=== PATIENT | male | born 1970 | race Caucasian/White ===

== ENCOUNTER 2021-06-22 10:18 | Emergency (ER) | payer OTHER, SELFPAY ==
[2021-06-22 10:45] VITALS: BP 127/89; PULSE 83; RESP 20; TEMP 36.6; O2SAT 98
--- NOTE | 2021-06-22 11:05 | ED.URI ---
HPI - URI/Sore Throat General Chief Complaint: Upper Respiratory Infection Stated Complaint: head and nasal congestion Time Seen by Provider: 06/22/21 11:05 Source: patient and RN notes reviewed Mode of arrival: ambulatory Limitations: no limitations History of Present Illness HPI Narrative: Arpit is a 51-year-old male patient who ambulated into the [facility] today. Patient states he has been sick since 06/17/2021. Patient states he has had congestion, fatigue, and diarrhea. Patient states his son has also been sick with cold-like symptoms. 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 Related Data Home Medications Medication Instructions Recorded Confirmed Dexilant 06/22/21 Allergies Allergy/AdvReac Type Severity Reaction Status Date / Time No Known Allergies Allergy Verified 06/22/21 10:59 Review of Systems Review of Systems: CONSTITUTIONAL: Denies body aches, fever, chills, or sweats. EYES: Denies visual changes, redness, or discharge. ENT: + rhinorrhea, +congestion, sore throat, or otalgia. CARDIOVASCULAR: Denies chest pain, palpitations, or edema. RESPIRATORY: Denies cough or dyspnea. GASTROINTESTINAL: Denies abdominal pain, nausea, vomiting, +diarrhea. GENITOURINARY: Denies dysuria or hematuria. SKIN: Denies rash, itching, or wounds. MUSCULOSKELETAL: Denies back pain, joint pain, or myalgia. NEUROLOGIC: Denies headache, numbness, tingling, or weakness. PSYCH: Denies depression or anxiety. All systems reviewed & are unremarkable except as noted in HPI and below PMFSH Comments At time of signature, I have reviewed and agree with nursing past medical, surgical, social and family history unless otherwise noted. Please see nursing chart for further information. There is no relevant family history pertinent to the presenting complaint Exam Narrative: GENERAL: Well-appearing, well-nourished, and in no acute distress. HEAD: Normocephalic, atraumatic. EYES: EOMI. No redness or drainage. Conjunctivae normal. ENT: Mucous membranes pink and moist. Nasal membranes erythematous with clear drainage. Bilateral tympanic membranes are dull with minimal fluid no erythema. Posterior pharynx is erythemic with moderate postnasal drainage no exudate. Uvula midline. NECK: Normal AROM. Supple. No lymphadenopathy. CHEST: No respiratory distress. Clear to auscultation. ABDOMEN: Soft, nontender, nondistended, normal active bowel sounds. MUSCULOSKELETAL: No bony tenderness. EXTREMITIES: Normal range of motion. No edema. SKIN: Warm, dry, no rash. Capillary refill normal. Normal skin turgor. NEURO: No focal deficits. Alert and oriented x3. Gait steady. PSYCH: Normal affect. No signs of depression or anxiety. Course Vital Signs Vital signs: Vital Signs Temperature 36.6 C 06/22/21 10:45 Pulse Rate 83 06/22/21 10:45 Respiratory Rate 20 06/22/21 10:45 Blood Pressure 127/89 06/22/21 10:45 Pulse Oximetry 98 06/22/21 10:45 Temperature 36.6 C 06/22/21 10:45 Pulse Rate 83 06/22/21 10:45 Respiratory Rate 20 06/22/21 10:45 Blood Pressure 127/89 06/22/21 10:45 Pulse Oximetry 98 06/22/21 10:45 Reviewed MDM - URI/Sore Throat MDM Narrative Medical decision making narrative: Patient is diagnosed with an upper respiratory infection. Patient has been sick since Thursday. Patient denies any fever. Patient has been taking Mucinex [id number] with relief. Differential Diagnosis Differential diagnosis: Likely upper respiratory infection, otitis media, sinusitis and influenza Medical Records Attestation: I reviewed the patient's medical records. Lab Data Labs: Lab Results 06/22/21 Range/Units 10:58 POC SARS CoV-2 Ag Negative (Negative) Critical Care Time Critical Care Time Critical Care Time: No Discharge Plan Discharge Clinical Impression: Acute nasopharyngitis (common cold) Patient Disposition: Home, Self-Care Condition:
== END 2021-06-22 11:20 | disposition home or self-care (01) ==
PROVIDERS: Emergency Provider Nurse Practitioner Family; PCP Physician Assistant
DX: J00 Acute nasopharyngitis [common cold] (principal); Z20.822 Contact with and (suspected) exposure to COVID-19
CPT/HCPCS: 87426; 99203; C9803; G0463